=== PATIENT | male | born 1955 | race Caucasian/White ===

== ENCOUNTER 2019-09-27 10:38 | Outpatient (CLI) | payer BC, SELFPAY ==
--- NOTE | ~2019-09-27 | XR_ITS ---
EXAMINATION: XR abdomen/kub 1V INDICATION: Erectile dysfunction due to arterial insufficiency TECHNIQUE: Supine views of the abdomen were obtained on 2 radiographs. COMPARISON: 08/10/2018 FINDINGS: Punctate calcifications of the left kidney are unchanged. There are punctate calcifications in the left upper quadrant which are consistent with healed granulomatous disease of the spleen. The bowel gas pattern is normal. A moderate volume of colonic stool is present. Phleboliths are noted in the pelvis. There is minimal calcified atherosclerosis. IMPRESSION: 1. Punctate left nephrolithiasis. Reviewed, dictated and finalized at location A. 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
== END 2019-09-27 10:39 | disposition home or self-care (01) ==
LOC: ANHIMG 10:46
PROVIDERS: Visit Provider Urology
DX: N52.01 Erectile dysfunction due to arterial insufficiency (principal); N20.0 Calculus of kidney
CPT/HCPCS: 74018

== ENCOUNTER 2020-12-10 08:24 | Outpatient (CLI) | payer MEDICARE, BC, SELFPAY ==
--- NOTE | ~2020-12-10 | XR_ITS ---
XR abdomen/kub 1V DATE: 12/10/2020 08:47 INDICATION: Kidney stone TECHNIQUE: AP projection, 2 views COMPARISON: 09/27/2019 KUB FINDINGS: Multiple small calcifications are again noted overlying the left kidney consistent with lef t nephrolithiasis. There is no significant change since 09/27/2019. Calcified pelvic phleboliths are stable since 09/27/2019. Multiple splenic calcified granulomas. The psoas shadows are intact. No visceromegaly is evident. No evidence of bowel obstruction. IMPRESSION: Left nephrolithiasis Reviewed, dictated and finalized at [facility]. Reviewed, dictated and finalized at location A. IMPRESSION: Left nephrolithiasis
== END 2020-12-10 08:25 | disposition home or self-care (01) ==
LOC: ANHIMG 08:33
PROVIDERS: PCP Family Medicine; Visit Provider Urology
DX: N20.0 Calculus of kidney (principal)
CPT/HCPCS: 74018

== ENCOUNTER 2021-12-24 09:19 | Outpatient (CLI) | payer MEDICARE, BC, SELFPAY ==
--- NOTE | ~2021-12-24 | XR_ITS ---
EXAMINATION: XR abdomen/kub 1V DATE: 12/24/2021 09:58 INDICATION: Calcium kidney stone, bilateral. TECHNIQUE: A supine view of the abdomen on 2 radiographs was obtained. COMPARISON: Abdomen radiograph 12/10/2020 FINDINGS: There are no dilated loops of bowel. There are phleboliths in the pelvis. The kidneys are o bscured by bowel. There are approximately 5 stones in left kidney measuring up to 3 mm. IMPRESSION: 1. Left kidney stones. Reviewed, dictated and finalized at location A. IMPRESSION: 1. Left kidney stones.
== END 2021-12-24 09:20 | disposition home or self-care (01) ==
PROVIDERS: PCP Family Medicine; Visit Provider Urology
DX: N20.0 Calculus of kidney (principal)
CPT/HCPCS: 74018

== ENCOUNTER 2023-01-20 09:58 | Outpatient (CLI) | payer MEDICARE, OTHER, SELFPAY ==
--- NOTE | ~2023-01-20 | XR_ITS ---
Supine and upright views of the abdomen Clinical history: Renal stones COMPARISON: 12/24/2021 Findings: Bowel gas pattern is nonspecific. No evidence for obstruction or free air. Probable multipl e small bilateral renal stones present, largest measuring 3 mm. Osseous structures are intact. Impression: Probable bilateral renal stones, measuring up to 3 mm in maximum diameter. Reviewed, dictated and finalized at [facility], [place]. Impression: Probable bilateral renal stones, measuring up to 3 mm in maximum diameter.
== END 2023-01-20 09:59 | disposition home or self-care (01) ==
PROVIDERS: PCP Family Medicine; Visit Provider Urology
DX: N20.0 Calculus of kidney (principal)
CPT/HCPCS: 74018

== ENCOUNTER 2024-03-21 09:50 | Outpatient (CLI) | payer MEDICARE, OTHER, SELFPAY ==
--- NOTE | ~2024-03-21 | XR_ITS ---
XR abdomen/kub 1V Ordering provider: Mino Barillas MD History: . CALCIUM KIDNEY STONE, ROUTINE F/U . Comparison: January 20, 2023 FINDINGS: BOWEL: Nonobstructive bowel gas pattern. ORGANOMEGALY: None. SIGNIFICANT PATHOLOGIC CALCIFICATIONS: Multiple left kidney stones. OTHER: No free air is seen under the diaphragm. IMPRESSION: NO ACUTE ABDOMINAL FINDINGS. Multiple left kidney stones. Reviewed, dictated and finalized at location A.
== END 2024-03-21 09:51 | disposition home or self-care (01) ==
PROVIDERS: PCP Family Medicine; Visit Provider Urology
DX: N20.0 Calculus of kidney (principal)
CPT/HCPCS: 74018

== ENCOUNTER 2025-07-12 07:07 | Outpatient (CLI) | payer MEDICARE, OTHER, SELFPAY ==
--- NOTE | ~2025-07-12 | XR_ITS ---
EXAMINATION: XR abdomen/kub 1V, 07/12/2025 7:18 [facility] HISTORY: calcium kidney stone COMPARISON: No comparisons available. Technique: 3 view. Findings: Moderate fecal content limits evaluation, no dilated bowel loops. Right renal calculi the largest lower pole 2 mm. Left renal calculi the largest lower pole 2 mm. No acute osseous abnormality. Impression: 1. No acute abnormality. Reviewed, dictated and finalized at location P. LSMITH Impression: 1. No acute abnormality.
== END 2025-07-12 07:08 | disposition home or self-care (01) ==
PROVIDERS: PCP Family Medicine; Visit Provider Urology
DX: N20.0 Calculus of kidney (principal)
CPT/HCPCS: 74018